=== PATIENT | male | born 1985 ===

== ENCOUNTER 2022-02-17 17:04 | Emergency (ER) | payer OTHER, SELFPAY ==
[2022-02-17 17:16] VITALS: PULSE 118; RESP 18; TEMP 37.1; O2SAT 97; BMI 30.8
--- NOTE | 2022-02-17 17:41 | ED_ITS ---
Documented by User: Alexandru Macias DO 02/27/22 11:44 HPI - Headache General: Chief Complaint: Headache Stated Complaint: Headache, buring with urination, vomiting Time Seen by Provider: 02/17/22 17:22 Source: patient Mode of arrival: ambulatory Limitations: no limitations History of Present Illness: 36-year-old male presents emergency room complaining of a headache for the last couple of days he locates it is frontal bilaterally woke up in the morning with it behind his eyes. He relates it to allergies. States has not been able to eat or drink much he usually has symptoms related to allergies if he does not eat or drink that then the headache and other symptoms will go away. He also associates numbness of his feet with this and dysuria. He denies any fever sweats or chills no hematuria he had one episode of vomiting he has no vision changes. MD elicited complaint: headache Onset (ago): hour(s) Onset description: gradually Location: frontal Quality & Timing: throbbing Exacerbating factors: none Relieving factors: nothing Associated symptoms: Deny chest pain, confusion, cough, diaphoresis, eye pain, eye redness, fever(s), lightheadedness, loss of vision, malaise, nausea, neck stiffness, numbness, paresthesias, photophobia, pre-syncope, rash, seizures, short of breath, sound sensitivity, syncope, vomiting or weakness Treatments prior to arrival: none Review of Systems Const: Denies: fever(s), malaise or diaphoresis Card: Denies: chest pain, lightheadedness, syncope or pre-syncope GI: Denies: nausea or vomiting : Reports: dysuria, urinary frequency and urinary urgency; Denies: flank pain or difficulty urinating Skin/Breast: Denies: rash or pruritus Neuro: Reports: headache(s) and numbness in extremities; Denies: confusion PFSH ED PFSH: Medical History (Updated 02/27/22 @ 11:43 by Alexandru Macias DO) Migraines Surgical History (Updated 02/27/22 @ 11:43 by Alexandru Macias DO) No significant past surgical history Physical Exam Const: COMMON NORMALS: no acute distress GENERAL APPEARANCE: cooperative and comfortable ORIENTATION/CONSCIOUSNESS: Yes awake, Yes oriented to person, Yes oriented to place and Yes oriented to time HENMT: COMMON NORMALS: normocephalic, atraumatic, hearing grossly normal bilaterally, external ears normal, EAC's normal, TM's normal bilaterally, Normal nasal mucous membranes and turbinates present, moist oral mucous membranes and oropharynx normal HEAD & SCALP: normocephalic and atraumatic NOSE: Normal nasal mucous membranes and turbinates present EXTERNAL EAR: Yes external ears normal EXTERNAL AUDITORY CANAL: EAC's normal TYMPANIC MEMBRANE: TM's normal bilaterally Eye: COMMON NORMALS: Equal, round and reactive pupils present, EOMs intact bilaterally, conjunctivae normal and no scleral icterus CONJUNCTIVA: Yes conjunctivae normal PUPIL: Yes Equal, round and reactive pupils present DIRECT OPHTHALMOSCOPY: No photophobia Neck/C-Spine: COMMON NORMALS: full ROM, no lymphadenopathy, supple and no JVD Resp: COMMON NORMALS: normal respiratory effort, No retractions, No use of accessory muscles and clear to auscultation bilaterally AUSCULTATION: clear to auscultation bilaterally Cardio: COMMON NORMALS: no JVD, regular rate, regular rhythm and No murmurs present (Cardio) RATE: regular rate RHYTHM: regular rhythm GI: COMMON NORMALS: Soft to palpation and No hepatosplenomegaly present AUSCULTATION: Yes normoactive bowel sounds PALPATION: Yes Soft to palpation, No Tenderness to palpation present (GI), No Guarding due to palpation present (GI) and Yes No hepatosplenomegaly present Extremity: COMMON NORMALS: normal to inspection, capillary refill normal, no clubbing, cyanosis or edema, no calf tenderness and no pedal edema Neuro: SENSORIUM/ORIENTATION: Yes oriented to person, Yes oriented to place and Yes oriented to time Skin: COMMON NORMALS: no rashes or lesions noted GENERAL SKIN EXAM: no rashes or lesions noted Course Vital Signs: Vital signs: Vital Signs Temperature 98.7 F 02/17/22 21:19 Pulse Rate 98 02/17/22 21:19 Respiratory Rate 18 02/17/22 21:19 Blood Pressure 127/75 02/17/22 21:19 Pulse Oximetry 98 02/17/22 21:19 MDM - Headache Medical Decision Making Care signed out to Dr. Severino at change of shift. See final notes for diagnosis and disposition. 36-year-old male checked out to me at shift change by Dr. Macias. This gentleman has multiple symptoms. Main symptoms are dysuria and frequency of urine. He had a headache on arrival which is now resolved post hydration. He has no nuchal rigidity, has been up walking around in the emergency department going to the bathroom. His urinalysis is positive for leukocyte esterase, whites and reds and does not appear contaminated. His white blood cell count is 26.3 with a mild left shift. His lactic acid however is 0.9. His bicarbonate level was 21. His heart rate is down to 90s from 120 on arrival post IV fluid infusion. He is received 2 g of Rocephin here. GC and chlamydia have been sent. His head CT shows a calcification that appears benign. MRI follow-up is recommended nonemergent. We will print this gentleman's CD for him to return to [place] with for follow-up imaging. He was counseled on this. Belly CT is read as negative. His prostate does look mildly enlarged for 36-year-old, and appears somewhat inflamed to me on CT. This would obviously clinically fit with his dysuria, frequency, and lack of other findings on CT with urinalysis positive for UTI. On further interview, he tells me he had similar symptoms of dysuria and was treated with antibiotics short-term a few weeks ago, but the symptoms returned. This also fits with prostatitis. We will give him a long course of antibiotics for prostatitis, and encouraged him to follow-up with his physician when he gets home to [place]. With leukocytosis, tachycardia, and signs of infection, the patient would meet admission criteria. He was counseled on admission, but declined admission, wishing to be discharged on antibiotics. Lab Data : 02/17/22 17:30 02/17/22 17:[address] 02/17/22 17:42 IMPRESSION: 1. No acute intracranial abnormality. 2. Densely, almost completely calcified, benign-appearing 1.5 cm lesion of the right choroid plexus in the temporal horn the right lateral ventricle. 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 No associated hydrocephalus. Recommend MRI of brain with contrast for further assessment. Abdomen/Pelvis CT 02/17/22 18:50 IMPRESSION: 1. Small right inguinal hernia noted, containing only fat. 2. No acute abnormality demonstrated in the abdomen and pelvis. Laboratory Results WBC 26.3 10^3/uL (4.0-10.0) H 02/17/22 17: RBC 5.09 10^6/uL (4.1-5.3) 02/17/22: Hgb 15.5 g/dL (11.7-16.6) 02/17/22: Hct 44.1 % (42.0-52.0) 02/17/22: MCV 86.6 fl (80-94) 02/17/22: MCH 30.5 pg (28.0-34.0) 02/17/22: MCHC 35.1 g/dL (30.0-36.0) 02/17/22: RDW 12.9 % (12.1-15.1) 02/17/22: Plt Count 241 10^3/cmm (130-400) 02/17/22: MPV 10.0 fL (7.4-10.4) 02/17/22: Neut % (Auto) 83.9 % 02/17/22: Lymph % (Auto) 7.1 % 02/17/22: Lane % (Auto) 7.9 % 02/17/22: Eos % (Auto) 0.0 % 02/17/22: Baso % (Auto) 0.3 % 02/17/22: Neut # (Auto) 22.01 10^3/uL (1.8-7.7) H 02/17/22: Lymph # (Auto) 1.9 10^3/uL (0.8-4.8) 02/17/22 17: Lane # (Auto) 2.1 10^3/uL (0.2-0.9) H 02/17/22: Eos # (Auto) 0.0 10^3/uL (0.0-0.8) 02/17/22: Baso # (Auto) 0.1 10^3/uL (0.0-0.1) 02/17/22: Nucleated RBC % (auto) 0 % 02/17/22: Nucleated RBCs # 0.0 /100WBC 02/17/22:30 Sodium 129 mmol/L (136-145) L 02/17/22 17:30 Potassium 3.7 mmol/L (3.5-5.1) 02/17/22 17:30 Chloride 95 mmol/L (98-107) L 02/17/22 17:30 Carbon Dioxide 21 mmol/L (22-29) L 02/17/22 17:30 Anion Gap 16.7 (5-19) 02/17/22 17:30 BUN 10 mg/dL (6-20) 02/17/22 17:30 Creatinine 0.8 mg/dL (0.7-1.2) 02/17/22 17:30 GFR Calculation 110.0 mL/min (90-130) 02/17/22 17: Glucose 106 mg/dL (65-115) 02/17/22 17:30 Calculated Osmolality 267 mOsm/kg (285-295) L 02/17/22 17:30 Lactic Acid 0.9 mmol/L (0.5-2.2) 02/17/22 19:11 Calcium 9.7 mg/dL (8.5-10.5) 02/17/22 17:30 Total Bilirubin 1.3 mg/dL (0.15-1.2) H 02/17/22 17:30 AST 13 U/L (0-40) 02/17/22 17:30 ALT 11 U/L (0-41) 02/17/22 17:30 Alkaline Phosphatase 96 IU/L (40-130) 02/17/22 17:30 Total Protein 8.2 g/dL (6.6-8.7) 02/17/22 17:30 Albumin 4.2 g/dL (3.5-5.2) 02/17/22 17:30 Globulin 4.0 g/dL (1.3-4.6) 02/17/22 17:30 Urine Color Yellow (Yellow) 02/17/22 17:39 Urine Appearance Hazy (CLEAR) A 02/17/22 17:39 Urine pH 6 (5-7) 02/17/22 17:39 Ur Specific [place] 1.010 (1.005-1.030) 02/17/22 17:39 Urine Protein Trace (Negative) 02/17/22 17:39 Urine Glucose (UA) Norm (Normal) 02/17/22 17:39 Urine Ketones 2+ (Negative) H 02/17/22 17:39 Urine Blood 3+ (Negative) H 02/17/22 17:39 Urine Nitrate Negative (Negative) 02/17/22 17:39 Urine Bilirubin Neg (Negative) 02/17/22 17:39 Urine Urobilinogen Norm mg/dL (Negative) 02/17/22 17:39 Ur Leukocyte Esterase 2+ (Negative) H 02/17/22 17:39 Urine RBC 10-15 /hpf (0-2) H 02/17/22 17:39 Urine WBC 55-80 /hpf (0-5) H 02/17/22 17:39 Ur Squamous Epith Cells Rare /hpf (0-5) 02/17/22 17:39 Amorphous Sediment Not Reportable 02/17/22 17:39 Urine Bacteria 2+ /hpf (NONE) H 02/17/22 17:39 Discharge Plan Discharge Patient Disposition: Home Clinical Impression: Urinary tract infection, Acute prostatitis Condition: Stable Prescriptions: New ciprofloxacin HCl 500 mg tablet 500 mg PO BID Qty: 90 0RF Discharge Orders: Discharge ED (Routine); Ordered 02/17/22 Ordered By: Felipe Severino Discharge Diet: Advance as tolerated Patient Instructions: Prostatitis (ED), Urinary Tract Infection in Men (ED) Activity Restrictions/Additional Instructions: Return for fever greater than 100 despite 2-3 doses of antibiotics, worsening headache, vomiting liquids or medications, any other concerning symptoms. Finish all of your antibiotics despite absence of symptoms. You have been provided with a CD of your images showing the calcification on your head/brain CAT scan. This calcification does not appear to be problematic, but MRI was suggested for follow-up. Follow-up with your doctor as an outpatient regarding this as well as your current diagnosis Coding Level of Care Code ED Director Hospice Operations for [facility] Exam Problem Focused Documented by User: Felipe Severino, 02/17/22 21:36 HPI - Headache General: Chief Complaint: Headache Stated Complaint: Headache, buring with urination, vomiting Time Seen by Provider: 02/17/22 17:22 [facility] ED [facility]: Medical History (Updated 02/27/22 @ 11:43 by Alexandru Macias DO) Migraines Surgical History (Updated 02/27/22 @ 11:43 by Alexandru Macias DO) No significant past surgical history Course Vital Signs: Vital signs: Vital Signs Temperature 98.7 F 02/17/22 21:19 Pulse Rate 98 02/17/22 21:19 Respiratory Rate 18 02/17/22 21:19 Blood Pressure 127/75 02/17/22 21:19 Pulse Oximetry 98 02/17/22 21:19 MDM - Headache Medical Decision Making 36-year-old male checked out to me at shift change by Dr. Macias. This gentleman has multiple symptoms. Main symptoms are dysuria and frequency of ur ine. He had a headache on arrival which is now resolved post hydration. He has no nuchal rigidity, has been up walking around in the emergency department going to the bathroom. His urinalysis is positive for leukocyte esterase, whites and reds and does not appear contaminated. His white blood cell count is 26.3 with a mild left shift. His lactic acid however is 0.9. His bicarbonate level was 21. His heart rate is down to 90s from 120 on arrival post IV fluid infusion. He is received 2 g of Rocephin here. GC and chlamydia have been sent. His head CT shows a calcification that appears benign. MRI follow-up is recommended nonemergent. We will print this gentleman's CD for him to return to [place] with for follow-up imaging. He was counseled on this. Belly CT is read as negative. His prostate does look mildly enlarged for 36-year-old, and appears somewhat inflamed to me on CT. This would obviously clinically fit with his dysuria, frequency, and lack of other findings on CT with urinalysis positive for UTI. On further interview, he tells me he had similar symptoms of dysuria and was treated with antibiotics short-term a few weeks ago, but the symptoms returned. This also fits with prostatitis. We will give him a long course of antibiotics for prostatitis, and encouraged him to follow-up with his physician when he gets home to [place]. With leukocytosis, tachycardia, and signs of infection, the patient would meet admission criteria. He was counseled on admission, but declined admission, wishing to be discharged on antibiotics. Lab Data : 02/17/22 17:30 02/17/22 17:[address] 02/17/22 17:42 IMPRESSION: 1. No acute intracranial abnormality. 2. Densely, almost completely calcified, benign-appearing 1.5 cm lesion of the right choroid plexus in the temporal horn the right lateral ventricle. 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 No associated hydrocephalus. Recommend MRI of brain with contrast for further assessment. Abdomen/Pelvis CT 02/17/22 18:50 IMPRESSION: 1. Small right inguinal hernia noted, containing only fat. 2. No acute abnormality demonstrated in the abdomen and pelvis. Laboratory Results WBC 26.3 10^3/uL (4.0-10.0) H 02/17/22 17:30 RBC 5.09 10^6/uL (4.1-5.3) 02/17/22 17:30 Hgb 15.5 g/dL (11.7-16.6) 02/17/22 17:30 Hct 44.1 % (42.0-52.0) 02/17/22 17: MCV 86.6 fl (80-94) 02/17/22 17:30 MCH 30.5 pg (28.0-34.0) 02/17/22 17:30 MCHC 35.1 g/dL (30.0-36.0) 02/17/22 17:30 RDW 12.9 % (12.1-15.1) 02/17/22 17: Plt Count 241 10^3/cmm (130-400) 02/17/22 17: MPV 10.0 fL (7.4-10.4) 02/17/22 17: Neut % (Auto) 83.9 % 02/17/22 17: Lymph % (Auto) 7.1 % 02/17/22 17:30 Lane % (Auto) 7.9 % 02/17/22 17:30 Eos % (Auto) 0.0 % 02/17/22 17: Baso % (Auto) 0.3 % 02/17/22 17: Neut # (Auto) 22.01 10^3/uL (1.8-7.7) H 02/17/22 17:30 Lymph # (Auto) 1.9 10^3/uL (0.8-4.8) 02/17/22 17:30 Lane # (Auto) 2.1 10^3/uL (0.2-0.9) H 02/17/22 17:30 Eos # (Auto) 0.0 10^3/uL (0.0-0.8) 02/17/22 17:30 Baso # (Auto) 0.1 10^3/uL (0.0-0.1) 02/17/22 17:30 Nucleated RBC % (auto) 0 % 02/17/22 17:30 Nucleated RBCs # 0.0 /100WBC 02/17/22 17:30 Sodium 129 mmol/L (136-145) L 02/17/22 17:30 Potassium 3.7 mmol/L (3.5-5.1) 02/17/22 17:30 Chloride 95 mmol/L (98-107) L 02/17/22 17:30 Carbon Dioxide 21 mmol/L (22-29) L 02/17/22 17:30 Anion Gap 16.7 (5-19) 02/17/22 17:30 BUN 10 mg/dL (6-20) 02/17/22 17:30 Creatinine 0.8 mg/dL (0.7-1.2) 02/17/22 17:30 GFR Calculation 110.0 mL/min (90-130) 02/17/22 17:30 Glucose 106 mg/dL (65-115) 02/17/22 17:30 Calculated Osmolality 267 mOsm/kg (285-295) L 02/17/22 17:30 Lactic Acid 0.9 mmol/L (0.5-2.2) 02/17/22 19:11 Calcium 9.7 mg/dL (8.5-10.5) 02/17/22 17:30 Total Bilirubin 1.3 mg/dL (0.15-1.2) H 02/17/22 17:30 AST 13 U/L (0-40) 02/17/22 17:30 ALT 11 U/L (0-41) 02/17/22 17:30 Alkaline Phosphatase 96 IU/L (40-130) 02/17/22 17:30 Total Protein 8.2 g/dL (6.6-8.7) 02/17/22 17:30 Albumin 4.2 g/dL (3.5-5.2) 02/17/22 17:30 Globulin 4.0 g/dL (1.3-4.6) 02/17/22 17:30 Urine Color Yellow (Yellow) 02/17/22 17:39 Urine Appearance Hazy (CLEAR) A 02/17/22 17:39 Urine pH 6 (5-7) 02/17/22 17:39 Ur Specific [place] 1.010 (1.005-1.030) 02/17/22 17:39 Urine Protein Trace (Negative) 02/17/22 17:39 Urine Glucose (UA) Norm (Normal) 02/17/22 17:39 Urine Ketones 2+ (Negative) H 02/17/22 17:39 Urine Blood 3+ (Negative) H 02/17/22 17:39 Urine Nitrate Negative (Negative) 02/17/22 17:39 Urine Bilirubin Neg (Negative) 02/17/22 17:39 Urine Urobilinogen Norm mg/dL (Negative) 02/17/22 17:39 Ur Leukocyte Esterase 2+ (Negative) H 02/17/22 17:39 Urine RBC 10-15 /hpf (0-2) H 02/17/22 17:39 Urine WBC 55-80 /hpf (0-5) H 02/17/22 17:39 Ur Squamous Epith Cells Rare /hpf (0-5) 02/17/22 17:39 Amorphous Sediment Not Reportable 02/17/22 17:39 Urine Bacteria 2+ /hpf (NONE) H 02/17/22 17:39 Discharge Plan Discharge Patient Disposition: Home Clinical Impression: Urinary tract infection, Acute prostatitis Condition: Stable Prescriptions: New ciprofloxacin HCl 500 mg tablet 500 mg PO BID Qty: 90 0RF Discharge Orders: Discharge ED (Routine); Ordered 02/17/22 Ordered By: Felipe Severino Discharge Diet: Advance as tolerated Patient Instructions: Prostatitis (ED), Urinary Tract Infection in Men (ED) Activity Restrictions/Additional Instructions: Return for fever greater than 100 despite 2-3 doses of antibiotics, worsening headache, vomiting liquids or medications, any other concerning symptoms. Finish all of your antibiotics despite absence of symptoms. You have been provided with a CD of your images showing the calcification on your head/brain CAT scan. This calcification does not appear to be problematic, but MRI was suggested for follow-up. Follow-up with your doctor as an outpatient regarding this as well as your current diagnosis Coding Level of Care Code ED Director Hospice Operations for Flaco Severino Exam Problem Focused
--- NOTE | 2022-02-17 17:42 | CTR_ITS ---
PROCEDURE INFORMATION: Exam: CT Head Without Contrast Exam date and time: 02/17/2022 5:59 PM Age: 36 years old Clinical indication: Pain; Headache not specified; Patient HX: C/O VALENTINE w n/v denies any injury TECHNIQUE: Imaging protocol: Computed tomography of the head without contrast. Radiation optimization: All CT scans at this facility use at least one of these dose optimization techniques: automated exposure control; mA and/or kV adjustment per patient size (includes targeted exams where dose is matched to clinical indication); or iterative reconstruction. COMPARISON: No relevant prior studies available. RADIATION DOSE METRICS: Total DLP (mGy-cm): 1049.94 FINDINGS: Brain: Unremarkable. No hemorrhage. No significant white matter disease. No edema. Cerebral ventricles: Densely calcified, benign-appearing 1.5 cm lesion of the right choroid plexus in the temporal horn the right lateral ventricle. No hydrocephalus. Paranasal sinuses: Visualized sinuses are unremarkable. No fluid levels. Mastoid air cells: Unremarkable as visualized. No mastoid effusion. Bones/joints: Unremarkable. No acute fracture. Soft tissues: Unremarkable. CT/CT head wo con* [id number] IMPRESSION: 1. No acute intracranial abnormality. 2. Densely, almost completely calcified, benign-appearing 1.5 cm lesion of the right choroid plexus in the temporal horn the right lateral ventricle. 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 No associated hydrocephalus. Recommend MRI of brain with contrast for further assessment.
[2022-02-17 18:22] LABS: Basophils # 0.1 10^3/uL (0.0-0.1); Basophils % 0.3 %; Hematocrit 44.1 % (42.0-52.0); Hemoglobin 15.5 g/dL (11.7-16.6); Lymphocytes # 1.9 10^3/uL (0.8-4.8); Lymphocytes % 7.1 %; Mean Corpuscular HGB Conc 35.1 g/dL (30.0-36.0); Mean Corpuscular Hemoglobin 30.5 pg (28.0-34.0); Mean Corpuscular Volume 86.6 fl (80-94); Monocytes # 2.1 10^3/uL (0.2-0.9); Monocytes % 7.9 %; Neutrophils # 22.01 10^3/uL (1.8-7.7); Neutrophils % 83.9 %; Nucleated Red Blood Cells % 0 %; Platelet Count 241 10^3/cmm (130-400); Red Blood Count 5.09 10^6/uL (4.1-5.3); Red Cell Distribution Width 12.9 % (12.1-15.1); White Blood Count 26.3 10^3/uL (4.0-10.0)
[2022-02-17 18:40] LABS: Protein Urine Trace (Negative); Urine Appearance Hazy (CLEAR); Urine Color Yellow (Yellow); pH Urine 6 (5-7)
[2022-02-17 18:41] LABS: Add Urine Microscopic? YES; Bilirubin Urine Neg (Negative); Blood Urine 3+ (Negative); Glucose Urine UA Norm (Normal); Ketones Urine 2+ (Negative); Leukocyte Esterase Urine 2+ (Negative); Nitrate Urine Negative (Negative); Urobilinogen Urine Norm (Negative)
[2022-02-17 18:42] LABS: Alanine Aminotransferase 11 U/L (0-41); Albumin Level 4.2 g/dL (3.5-5.2); Alkaline Phosphatase 96 IU/L (40-130); Anion Gap 16.7 (5-19); Aspartate Amino Transferase 13 U/L (0-40); Blood Urea Nitrogen 10 mg/dL (6-20); Calcium 9.7 mg/dL (8.5-10.5); Carbon Dioxide 21 mmol/L (22-29); Chloride 95 mmol/L (98-107); Creatinine Clr Calc Pharmacy 150.9535; Glucose 106 mg/dL (65-115); Osmolality Calculated 267 mOsm/kg (285-295); Potassium 3.7 mmol/L (3.5-5.1); Sodium 129 mmol/L (136-145); Total Bilirubin 1.3 mg/dL (0.15-1.2); Total Protein 8.2 g/dL (6.6-8.7)
[2022-02-17 18:43] LABS: Add Urine Culture? Yes; Bacteria Urine 2+ /hpf; Squamous Epithelial Cell Urine RARE /hpf (0-5); WBC Urine 55-80 /hpf (0-5)
--- NOTE | 2022-02-17 18:50 | CTR_ITS ---
PROCEDURE INFORMATION: Exam: CT Abdomen And Pelvis With Contrast Exam date and time: 02/17/2022 7:33 PM Age: 36 years old Clinical indication: Nausea and vomiting; Patient HX: C/O n/v and elev wbc; Additional info: Vomiting, leukocytosis, UTI TECHNIQUE: Imaging protocol: Computed tomography of the abdomen and pelvis with contrast. Radiation optimization: All CT scans at this facility use at least one of these dose optimization techniques: automated exposure control; mA and/or kV adjustment per patient size (includes targeted exams where dose is matched to clinical indication); or iterative reconstruction. Contrast material: OMNI 300; Contrast volume: 95 ml; Contrast route: INTRAVENOUS (IV); COMPARISON: No relevant prior studies available. RADIATION DOSE METRICS: Total DLP (mGy-cm): 1845.96 FINDINGS: Lungs: Mild dependent atelectasis at the lung bases. Liver: The liver is unremarkable in appearance. Gallbladder and bile ducts: No calcified gallstones in the gallbladder. No gallbladder wall thickening. No pericholecystic fluid. No biliary dilatation. Pancreas: The pancreas is normal in appearance. No pancreatic duct dilatation. Spleen: The spleen is normal in size and appearance. Adrenal glands: The adrenal glands appear within normal limits. Kidneys and ureters: The kidneys are normal in morphology. No hydronephrosis. No solid mass. Stomach and bowel: No acute gastric abnormality demonstrated. Appendix: The appendix is normal in appearance. No evidence of appendicitis. Intraperitoneal space: No pneumoperitoneum. No significant fluid collection. Vasculature: No abdominal aortic aneurysm. Lymph nodes: No pathologically enlarged lymph nodes are demonstrated. Urinary bladder: The urinary bladder is unremarkable in appearance. Reproductive: Unremarkable as visualized. Bones/joints: No fracture or other acute osseous abnormality. Soft tissues: Small right inguinal hernia noted, containing only fat. CT/CT abdomen pelvis w con* [id number] IMPRESSION: 1. Small right inguinal hernia noted, containing only fat. 2. No acute abnormality demonstrated in the abdomen and pelvis.
[2022-02-17] MEDS: ondansetron 2 mg/ML SDV 2 mL 4 MG IVP (18:57)
[2022-02-17] MEDS: promethazine 25 mg/mL SDV 1 mL IM (18:57)
[2022-02-17] MEDS: lactated ringers 1,000 ML 999 ML IV ×2 (19:00→20:35)
[2022-02-17] MEDS: iohexol 300 mg/mL 100 mL Btl IV (19:32)
[2022-02-17 19:43] LABS: Lactic Sepsis W/Reflex 0.9 mmol/L (0.5-2.2)
[2022-02-17] MEDS: cefTRIAXone 2,000 MG in sodium chloride 0.9% (plus) 50 ML 100 MG IV (20:06)
[2022-02-17 20:14] VITALS: BP 135/78; PULSE 105; RESP 18; TEMP 37.1; O2SAT 98
[2022-02-17] MEDS: azithromycin 250 mg Tablet 1000 MG PO (21:10)
[2022-02-17 21:19] VITALS: BP 127/75; PULSE 98; RESP 18; TEMP 37.1; O2SAT 98
== END 2022-02-17 21:20 | disposition home or self-care (01) ==
PROVIDERS: Family Medicine; Emergency Provider Emergency Medicine
DX: N39.0 Urinary tract infection, site not specified (principal); N41.0 Acute prostatitis
CPT/HCPCS: 70450; 74177; 80053; 81001; 83605; 85025; 87040; 87077; 87086; 87186; 87491; 87591; 96361; 96365; 96372; 96375; 99284; J0696; J2405; J2550; Q0144; Q9967

== ENCOUNTER 2024-03-15 09:06 | Emergency (ER) | payer BC, MEDICAID, SELFPAY ==
[2024-03-15 09:27] VITALS: BP 147/91; PULSE 86; RESP 15; TEMP 36.8; O2SAT 95; BMI 33.7
--- NOTE | 2024-03-15 09:39 | ED_ITS ---
HPI - Skin/Abscess/Foreign Bdy General: Chief complaint: Skin/Abscess/Foreign Body Stated complaint: facial swelling Time Seen by Provider: 03/15/24 09:09 Source: patient Mode of arrival: ambulatory History of Present Illness: 38-year-old male presents emergency room complaint of swelling to his lower lip. Began overnight is not taking any new medicines [id number] or prescription does not take any medicines at all. He has not noticed any association with different foods or activities. He denies any facial pain or pressure no dental pain. Had this happen previously and the symptoms resolved spontaneously denies any difficulty speech or swallowing. No rash no pharyngitis no nasal drainage pain or pressure Exacerbating factors: none Context: none Associated symptoms: Deny arthralgias, chills, cough, fever(s), itching, myalgias, nausea, rigidity, short of breath or vomiting Treatments prior to arrival: none Review of Systems Const: Denies: fever(s) or chills ENMT: Denies: throat pain, ear or mastoid pain, nasal discharge or nasal congestion Card: Denies: chest pain Resp: Denies: dyspnea GI: Denies: abdominal pain, nausea or vomiting : Denies: dysuria, urinary frequency or urinary urgency Musc: Denies: neck pain or back pain Skin/Breast: Denies: rash PFSH ED PFSH: Medical History Migraines Surgical History No significant past surgical history Physical Exam Const: COMMON NORMALS: no acute distress GENERAL APPEARANCE: cooperative and comfortable ORIENTATION/CONSCIOUSNESS: Yes awake, Yes oriented to person, Yes oriented to place and Yes oriented to time HENMT: COMMON NORMALS: normocephalic, atraumatic, hearing grossly normal bilaterally, external ears normal, EAC's normal, TM's normal bilaterally and Normal nasal mucous membranes and turbinates present HEAD & SCALP: normocephalic and atraumatic NOSE: Normal nasal mucous membranes and turbinates present EXTERNAL EAR: Yes external ears normal EXTERNAL AUDITORY CANAL: EAC's normal TYMPANIC MEMBRANE: TM's normal bilaterally OTHER: Moderate swelling isolated to the lower lip bilaterally Eye: COMMON NORMALS: Equal, round and reactive pupils present, EOMs intact bilaterally, conjunctivae normal and no scleral icterus CONJUNCTIVA: Yes conjunctivae normal PUPIL: Yes Equal, round and reactive pupils present Neck/C-Spine: COMMON NORMALS: full ROM, no lymphadenopathy, supple and no JVD Lymph: LYMPHATIC: no lymphadenopathy noted and no lymphedema noted Resp: COMMON NORMALS: normal respiratory effort, No retractions, No use of accessory muscles and clear to auscultation bilaterally AUSCULTATION: clear to auscultation bilaterally Cardio: COMMON NORMALS: no JVD, regular rate, regular rhythm and No murmurs present (Cardio) RATE: regular rate RHYTHM: regular rhythm GI: COMMON NORMALS: Soft to palpation and No hepatosplenomegaly present AUSCULTATION: Yes normoactive bowel sounds PALPATION: Yes Soft to palpation, No Tenderness to palpation present (GI), No Guarding due to palpation present (GI) and Yes No hepatosplenomegaly present Extremity: COMMON NORMALS: normal to inspection, capillary refill normal, no clubbing, cyanosis or edema, no calf tenderness and no pedal edema Neuro: SENSORIUM/ORIENTATION: Yes oriented to person, Yes oriented to place and Yes oriented to time Skin: COMMON NORMALS: no rashes or lesions noted GENERAL SKIN EXAM: no rashes or lesions noted Course Vital Signs: Vital signs: Vital Signs Temperature 98.2 F 03/15/24 09:27 Pulse Rate 81 03/15/24 10:29 Respiratory Rate 15 03/15/24 09:27 Blood Pressure 147/91 03/15/24 09:27 Pulse Oximetry 96 03/15/24 10:29 Oxygen Delivery Me thod Room Air 03/15/24 10:29 MDM - Skin/Abscess/Foreign Bdy Medicial Decision Making Swelling isolated lower lip no stridor no wheezing improved with antihistamines and steroids. Patient states he feels like it is gone down visibly and feels to have appears to have decreased. He has had a couple of other episodes of this he thinks are all related to pollen exposure he said he had one about a year ago in the spring at about this time. Will discharge home he declined steroids I did send them and use cetirizine 1 twice daily. Encouraged him to follow-up with his primary care doctor for possible referral to wire rope sales representative. Medical Records I reviewed the patient's medical records. Lab Data I reviewed the patient's lab results. No radiology studies performed this visit Discharge Plan Discharge Patient Disposition: Home Clinical Impression: Angioedema of lips Condition: Stable Prescriptions: New prednisone 20 mg tablet 20 mg PO TID Qty: 15 0RF Rx Instructions: 1 p.o. 3 times daily x3 days, 1 p.o. twice daily x2 days, 1 p.o. daily x2 days cetirizine 10 mg tablet 10 mg PO BID Qty: 20 0RF Discharge Orders: Discharge ED (Routine); Ordered 03/15/24 Ordered By: Alexandru Macias Discharge Diet: Usual diet Discharge Activity: Resume usual activity Patient Instructions: Opioid Safety, Pain Management Activity Restrictions/Additional Instructions: Thank you for choosing [facility] for your healthcare needs today. Please realize this is an emergency room and that we are providing you with a medical screening exam and this may not be complete and all inclusive of all the testing and or work up that you may need to determine your ailment or severity of your illness. It is very important that you follow up as instructed or that you return to the Emergency Department should you have concerns or if your condition changes or worsens in any way. Follow-up with your primary care doctor for possible evaluation for referral to wire rope sales representative. Coding Level of Care Code ED Cake Wringer for Flaco Severino
[2024-03-15] MEDS: diphenhydrAMINE 50 mg/mL SDV 1mL IM (10:00)
[2024-03-15] MEDS: dexamethasone 10 mg/mL INJ IM (10:00)
[2024-03-15 10:29] VITALS: PULSE 81; O2SAT 96
== END 2024-03-15 11:21 | disposition home or self-care (01) ==
PROVIDERS: Emergency Provider Family Medicine
DX: T78.3XXA Angioneurotic edema, initial encounter (principal); X58.XXXA Exposure to other specified factors, initial encounter
CPT/HCPCS: 96372; 99284; J1100; J1200